=== PATIENT | female | born 1960 | race Caucasian/White ===

== ENCOUNTER → 2024-11-22 | Outpatient (CLI) | payer OTHER ==
--- NOTE | 2024-11-22 14:21 | HMCIMG ---
DEXA BONE DENSITY SURVEY HISTORY: Menopause COMPARISON: None FINDINGS: Bone densitometry study was performed. Bone mineral density of the lumbar spine is 0.902 gram per centimeter square which corresponds to a T score of -1.3 and a Z score of 0.5. Bone mineral density of the left hip is 0.754 grams per centimeter square which corresponds to a T score of -1.5 and a Z score of -0.3. IMPRESSION: 1. Osteopenia of the lumbar spine and left hip.
--- NOTE | 2024-11-23 12:38 | HMCIMG ---
MAMMO SCREENING BILATERAL HISTORY: Screening mammogram. COMPARISON: None TECHNIQUE: Bilateral screening mammogram with CAD was performed with craniocaudal and mediolateral oblique projections. FINDINGS: There are scattered areas of fibroglandular density. Nodular density is seen at 12:00 of left breast. Coned compression view and ultrasound are recommended for complete evaluation. There is no evidence of a dominant mass, or suspicious microcalcification. There is no evidence of nipple retraction or skin thickening. IMPRESSION: 1. Nodular density is seen at 12:00 of left breast. Coned compression view and ultrasound are recommended for complete evaluation. Patient was entered into a reminder system with a target due date for their next mammogram. BI-RADS: CATEGORY 0: INCOMPLETE. NEED ADDITIONAL IMAGING EVALUATION Diagnostic mammogram is recommended. Recommend monthly self breast exam as well as annual clinical examination. A negative x-ray should not delay biopsy if a dominant or clinically suspicious mass is present, since 8-10% of cancers are not identified by mammography. Dense breasts particularly, may obscure an underlying neoplasm. Some of these may be detected clinically and therefore, clinical examination is an essential part of breast evaluation.
== END | disposition home or self-care (01) ==
LOC: RAH 13:11
PROVIDERS: ATTEND Internal Medicine
DX: Z12.31 Encounter for screening mammogram for malignant neoplasm of breast (principal); M85.89 Other specified disorders of bone density and structure, multiple sites; N63.25 Unspecified lump in the left breast, overlapping quadrants; R92.323 Mammographic fibroglandular density, bilateral breasts; Z78.0 Asymptomatic menopausal state
CPT/HCPCS: 77067; 77080

== ENCOUNTER → 2024-12-05 | Outpatient (CLI) | payer OTHER ==
--- NOTE | 2024-12-05 16:39 | HMCIMG ---
PROCEDURE: US BREAST COMPLETE UNILATERAL, MAMMO DX UNILATERAL LEFT HISTORY: Abnormal mammogram COMPARISON: 11/22/2024 TECHNIQUE: Left breast digital diagnostic mammogram with CAD was performed. Additional cone compression views were obtained. Left breast ultrasound study was performed. FINDINGS: There are scattered areas of fibroglandular density. Persistent nodular density is seen in the colon compression views of left breast at 11:00. There is left breast cyst at 11:00 on the ultrasound study measuring 3 mm. Left axillary lymph nodes are seen with the largest measuring 16 x 10 x 11 mm. There is no evidence of a dominant mass, or suspicious microcalcification. There is no evidence of nipple retraction or skin thickening. IMPRESSION: 1. Left breast cyst at 11:00 measuring 3 mm. BI-RADS: CATEGORY 2: BENIGN FINDINGS Recommend monthly self breast exam as well as annual clinical examination. A negative x-ray should not delay biopsy if a dominant or clinically suspicious mass is present, since 8-10% of cancers are not identified by mammography. Dense breasts particularly, may obscure an underlying neoplasm. Some of these may be detected clinically and therefore, clinical examination is an essential part of breast evaluation.
== END | disposition home or self-care (01) ==
LOC: RAH 13:34
PROVIDERS: ATTEND Internal Medicine
DX: N60.02 Solitary cyst of left breast (principal); R92.322 Mammographic fibroglandular density, left breast
CPT/HCPCS: 76641; 77065